=== PATIENT | male | born 1995 | race Two or more races ===

== ENCOUNTER 2021-03-18 06:22 | Emergency (ER) | payer SELFPAY ==
[~2021-03-18] VITALS: Ht 160 cm; Wt 55.0 kg
[2021-03-18] MEDS ORDERED: RINGERS SOLUTION,LACTATED 1,000 ML IV ONE ×2 (06:45)
[2021-03-18 07:05] LABS: BASOPHILS % (AUTO) 0.8 % (0.0-2.0); EOSINOPHILS % (AUTO) 4.4 % (1.0-6.0); HEMATOCRIT 43.5 % (41-53); LYMPHOCYTES # (AUTO) 2.5 K/uL (1.0-4.8); LYMPHOCYTES % (AUTO) 24.7 % (22.0-44.0); MEAN CORPUSCULAR HEMOGLOBIN 29.3 pg (26.0-34.0); MEAN CORPUSCULAR HGB CONC 34.5 G/dL (31.0-37.0); MEAN CORPUSCULAR VOLUME 85 fL (80-100); MONOCYTES # (AUTO) 0.8 K/uL (0.1-1.0); MONOCYTES % (AUTO) 7.5 % (2.0-9.0); NEUTROPHILS # (AUTO) 6.4 K/uL (1.8-7.7); NEUTROPHILS % (AUTO) 62.6 % (40.0-70.0); PLATELET COUNT (AUTO) 362 K/uL (150-450); RED BLOOD CELL COUNT(AUTO) 5.13 MIL/uL (4.50-5.90)
[2021-03-18 07:12] LABS: ANION GAP 13 mmol/L (8-16); CALCIUM, TOTAL 8.9 mg/dL (8.8-10.5); CARBON DIOXIDE 23 mmol/L (22-29); CHLORIDE 99 mmol/L (98-107); GLOMERULAR FILTR. RATE CALC > 60 mL/min (>60); GLUCOSE,RANDOM 307 mg/dL (70-110); POTASSIUM 3.7 mmol/L (3.5-5.1); SODIUM SERUM 135 mmol/L (136-145); UREA NITROGEN, BLOOD 16 mg/dL (7-18)
[2021-03-18 07:16] LABS: PHOSPHORUS 3.2 mg/dL (2.5-4.9)
[2021-03-18] MEDS ORDERED: INSULIN LISPRO 100 UNITS/ML SQ ONE (08:15)
[2021-03-18 08:55] VITALS: BP 107/58
[2021-03-18 08:56] LABS: GLUCOSE,POINT OF CARE 145 MG/DL (70-110)
== END 2021-03-18 08:58 | disposition home or self-care (01) ==
LOC: EMS 06:22
DX: E11.65 Type 2 diabetes mellitus with hyperglycemia (principal); Z79.899 Other long term (current) drug therapy
CPT/HCPCS: 80048; 82010; 82948; 82962; 83735; 84100; 85025; 93005; 96360; 96361; 99284; J7120; 36415-L1; 36415-TC